=== PATIENT | male | born 1995 | race African-American/Black ===

== ENCOUNTER 2017-08-07 20:44 | Outpatient (CLI) | payer OTHER | END 2017-08-07 20:45 | disposition critical access hospital (66) | LOC: EMS 20:44 | PROVIDERS: ATTEND Surgery | DX: R40.20 Unspecified coma (principal) | CPT/HCPCS: A0425; A0429 ==

== ENCOUNTER 2019-01-08 19:51 | Emergency (ER) | payer OTHER ==
--- NOTE | 2019-01-08 20:24 | XRAY Report ---
Reason: smashed Procedure Date: 01/08/2019 Accession Number: [id number] / [id number] Procedure: XR - Finger(s) RT CPT Code: FULL RESULT: EXAM: RIGHT FIFTH DIGIT RADIOGRAPHY EXAM DATE: 01/08/2019 08:11 PM. CLINICAL HISTORY: Smashed. Right fifth digit laceration after getting finger caught in door tonight. Laceration at fifth metacarpophalangeal joint. COMPARISON: None. TECHNIQUE: 3 views. FINDINGS: Bones: Normal. No fracture or bone lesion. Joints: Normal. No subluxations. Soft Tissues: Subcutaneous soft tissue lucency seen at the ulnar dorsal aspect at the fifth proximal phalanx, could represent a laceration. No radiopaque foreign body. No evidence for acute fracture. IMPRESSION: Subcutaneous soft tissue lucency seen at the ulnar dorsal aspect at the fifth proximal phalanx, could represent a laceration. No radiopaque foreign body. No evidence for acute fracture. RADIA
--- NOTE | 2019-01-08 20:42 | ED Physician Documentation ---
PD HPI UPPER EXT INJURY - Stated complaint Stated Complaint: RT PINKY INJ - Chief complaint Chief Complaint: Laceration - History obtained from History obtained from: Patient - History of Present Illness Location: Right, Finger Type of injury: Crush (finger caught in door, with lac of skin and pain on ROM of the proximal part of the finger. No injury to the nailbed.) Timing - onset: Today (this morning.) Timing - details: Abrupt onset, Still present (he tried to just bandage it, but the lac opens still with flexion of the finger.) Improved by: Rest Worsened by: Moving Associated symptoms: Swelling (with small lac dorsal aspect of the MCP area. Lac withut FB and does not expose deep structures.). No: Weakness, Numbness Recently seen: Not recently seen Review of Systems Neurologic: denies: Focal weakness, Numbness, Near syncope PD PAST MEDICAL HISTORY - Past Medical History Cardiovascular: None Endocrine/Autoimmune: None - Past Surgical History Past Surgical History: No - Present Medications Home Medications: Ambulatory Orders Medication Instructions Recorded Confirmed No Known Home Medications 08/07/17 08/07/17 - Allergies Allergies/Adverse Reactions: Allergies Allergy/AdvReac Type Severity Reaction Status Date / Time Penicillins Allergy Hives Verified 01/08/19 19:57 - Social History Does the pt smoke?: No Smoking Status: Never smoker PD ED PE NORMAL - Vitals Vital signs reviewed: Yes - General General: Alert and oriented X 3, No acute distress, Well developed/nourished - Derm Derm: Normal color, Warm and dry - Extremities Extremities: Other (The right little finger shows swelling and tenderness locally over the proximal phalanx. Critically tender on the dorsal aspect. There is a flap laceration at the distal MCP area. There is no foreign body noted. There is no deformity on range of motion. There is good color and capillary refill in the tip.) - Neuro Neuro: No motor deficit, No sensory deficit Results - Vitals Vitals: Vital Signs - 24 hr 01/08/19 01/08/19 19:55 21:10 Temperature 36.9 C Heart Rate 66 68 Respiratory 17 18 Rate Blood Pressure 129/78 O2 Saturation 99 99 Oxygen O2 Source Room air - Rads (name of study) right finger Radiology: Prelim report reviewed (no fractures), EMP read contemporaneously, See rad report Procedures - Laceration (location) right little finger Length in cm: 1.3 Wound type: Flap, Into subcut fat, Clean Neurovascular status: Sensory intact, Motor intact, Vascular intact Tendon involvement: Tendon intact Anesthesia: Lidocaine 1% with epi Wound Preparation: Irrigated copiously NS Skin layer closure: Interrupted, Size #-0 - enter number (4), Sutures - enter # (5) Other: Patient tolerated well, No complications, Neurovascular intact, Dressing applied, Tetanus UTD Complexity: Simple Departure - Departure Disposition: 01 Home, Self Care Clinical Impression: Laceration of right little finger Qualifiers: Encounter type: initial encounter Damage to nail status: without damage Foreign body presence: without foreign body Qualified Code(s): S61.216A - Laceration without foreign body of right little finger without damage to nail, initial encounter Crush injury to finger Qualifiers: Encounter type: initial encounter Qualified Code(s): S67.10XA - Crushing injury of unspecified finger(s), initial encounter Condition: Stable Record reviewed to determine appropriate education?: Yes Instructions: ED Laceration Hand Follow-Up: BRENDA Menjivar [Provider Group] Comments: It is okay to wash and shower. Clean off the wound twice a day with soap and water, or peroxide and water. Apply some antibiotic ointment to it to keep it moist. Also to watch for signs of infection such as purulence, redness or increasing pain. Return to your primary care or the ER at the specified time for suture removal. Suture removal 10 days. Tylenol or ibuprofen as needed for pains. Regular use but not firm or hard use of the fingers to moderate stress on the sutures. Discharge Date/Time: 01/08/19 21:10
[2019-01-08 21:11] VITALS: BP 129/78
== END 2019-01-08 21:10 | disposition home or self-care (01) ==
LOC: ED 19:51
DX: S61.216A Laceration without foreign body of right little finger without damage to nail, initial encounter (principal); S67.10XA Crushing injury of unspecified finger(s), initial encounter; W23.0XXA Caught, crushed, jammed, or pinched between moving objects, initial encounter
CPT/HCPCS: 12001; 73140; 99282

== ENCOUNTER 2019-01-18 19:18 | Emergency (ER) | payer OTHER ==
[2019-01-18 19:38] VITALS: BP 132/70
--- NOTE | 2019-01-18 19:50 | ED Physician Documentation ---
PD HPI WOUND RECHECK - Stated complaint Stated Complaint: RT HAND STITCH REMOVED - Chief complaint Chief Complaint: Wound - Histroy obtained from History obtained from: Patient - History of Present Illness Location: Right Upper Extremity (Sutures 10 days ago, No complications. Here for suture removal. No other specific complaints.) Review of Systems Constitutional: denies: Fever, Chills Nose: reports: Reviewed and negative Throat: reports: Reviewed and negative PD PAST MEDICAL HISTORY - Past Medical History Cardiovascular: None Respiratory: None Neuro: None Endocrine/Autoimmune: None GI: None : None HEENT: None Psych: None Musculoskeletal: None Derm: None - Past Surgical History Past Surgical History: No General: Appendectomy HEENT: Tonsil/Adenoidectomy - Present Medications Home Medications: Ambulatory Orders Medication Instructions Recorded Confirmed No Known Home Medications 08/07/17 08/07/17 - Allergies Allergies/Adverse Reactions: Allergies Allergy/AdvReac Type Severity Reaction Status Date / Time Penicillins Allergy Hives Verified 01/18/19 19:38 - Social History Does the pt smoke?: No Smoking Status: Never smoker Does the pt drink ETOH?: Yes Does the pt have substance abuse?: No - Immunizations Immunizations are current?: Yes - POLST Patient has POLST: No PD ED PE NORMAL - Vitals Vital signs reviewed: Yes - General General: Alert and oriented X 3, No acute distress - Extremities Extremities: Other (Over the dorsum of the right fifth finger at the level of the proximal phalanx there is a sutured laceration without evidence of infection.) - Neuro Neuro: Alert and oriented X 3, Normal speech Results - Vitals Vitals: Vital Signs - 24 hr 01/18/19 19:30 Temperature 36.0 C L Heart Rate 73 Respiratory 16 Rate Blood Pressure 132/70 H O2 Saturation 99 Oxygen O2 Source Room air Departure - Departure Disposition: 01 Home, Self Care Clinical Impression: Visit for suture removal Condition: Good Record reviewed to determine appropriate education?: Yes Instructions: ED Wound Check Sutr Remove No Infec Comments: Your blood pressure was elevated today on check into the emergency department. This does not mean that you have hypertension, it is a common phenomenon to come to the emergency department and have elevated blood pressure. I recommend that you see your primary care physician within the week to have it rechecked when you are feeling better.
== END 2019-01-18 19:57 | disposition home or self-care (01) ==
LOC: ED 19:18
DX: S61.216D Laceration without foreign body of right little finger without damage to nail, subsequent encounter (principal); R03.0 Elevated blood-pressure reading, without diagnosis of hypertension
CPT/HCPCS: 99282

== ENCOUNTER 2019-02-12 06:01 | Day surgery (SDC) | payer OTHER ==
[2019-02-12] MEDS ORDERED: LACTATED RINGERS 1,000 ML IV ONE ×2 (06:20→09:13)
[2019-02-12] MEDS ORDERED: ceFAZolin 2 GM/50 ML 2 GM/50 ML BAG IV ONE (06:45)
--- NOTE | 2019-02-12 06:59 | ANESTHESIA ---
Pre-Anesthesia VS, & Labs - Diagnosis L ankle talus fracture, possible syndesmosis interruption - Procedure L ankle arthrotomy, possible ligament repair Vital Signs: Temp Pulse Resp BP Pulse Ox 36.1 C L 73 17 129/86 H 99 02/12/19 06:28 02/12/19 06:28 02/12/19 06:28 02/12/19 06:28 02/12/19 06:28 Height 6 ft 1 in Weight (kg) 77.11 kg Body Mass Index 22.4 - NPO >8 hours Home Medications and Allergies No Known Home Medications 08/07/17 Allergies/Adverse Reactions: Allergies Allergy/AdvReac Type Severity Reaction Status Date / Time Penicillins Allergy Hives Verified 02/10/19 10:21 Anes History & Medical History - Anesthetic History Anesthesia Complications: reports: No previous complications Family history of Anesthesia Complications: Denies Family history of Malignant Hyperthermia: Denies - Medical History Cardiovascular: reports: None Pulmonary: reports: None Gastrointestinal: reports: None Urinary: reports: None Neuro: reports: None Musculoskeletal: reports: Other Endocrine/Autoimmune: reports: None Blood Disorders: reports: None Skin: reports: None Smoking Status: Never smoker Psychosocial: reports: No issues indicated - Surgical History General: Appendectomy Eyes Ears Nose Throat (EENT): Tonsil/Adenoidectomy Exam General: Alert, Oriented x3, Cooperative Dental: WNL Mouth Openin Fingerbreadth Neck Mobility: Normal Mallampati classification: II Thyromental Distance: 4-6 cm Respiratory: Lungs clear, Normal breath sounds Cardiovascular: Regular rate Neurological: Normal speech Mental/Cognitive Status: Alert/Oriented X3, Normal for patient Cognitive Status: Within normal limits Plan Anesthesia Type: General Consent for Procedure(s) Verified and Reviewed: Yes Code Status: Attempt Resuscitation ASA classification: 1-Healthy patient Is this case an emergency?: No
[2019-02-12] MEDS ORDERED: BUPIVACAINE 0.25% PF 30 ML VIAL ONE (07:02)
[2019-02-12] MEDS ORDERED: BUPIVACAINE 0.25% PF 30 ML VIAL SUBQ ONE ×2 (08:28)
[2019-02-12] MEDS ORDERED: GLYCOPYRROLATE 1 MG/5 ML VIAL IVP ONE (09:00)
[2019-02-12] MEDS ORDERED: LIDOCAINE-MPF 2% 5 ML VIAL IM ONE (09:00)
[2019-02-12] MEDS ORDERED: fentaNYL 250 MCG/5 ML VIAL IVP ONE (09:00)
[2019-02-12] MEDS ORDERED: ONDANSETRON 4 MG/2 ML VIAL IVP ONE (09:00)
[2019-02-12] MEDS ORDERED: NALOXONE 0.4 MG/ML VIAL IVP ONE (09:00)
[2019-02-12] MEDS ORDERED: KETOROLAC 30 MG/ML VIAL IVP ONE (09:00)
[2019-02-12] MEDS ORDERED: MIDAZOLAM 2 MG/2 ML VIAL IVP ONE (09:00)
[2019-02-12] MEDS ORDERED: NEOSTIGMINE 1 MG/1 ML 10 ML MDV IVP ONE (09:00)
[2019-02-12] MEDS ORDERED: PROPOFOL 200 MG/20 ML VIAL IVP ONE (09:00)
[2019-02-12] MEDS ORDERED: HYDROmorphone 1 MG/ML SYRINGE IVP ONE (09:00)
[2019-02-12] MEDS ORDERED: ONDANSETRON 4 MG/2 ML VIAL IVP PRN (09:15)
[2019-02-12] MEDS ORDERED: oxyCODONE 5 MG TABLET PO PRN (09:15)
[2019-02-12] MEDS ORDERED: ACETAMINOPHEN 1,000 MG/100 ML 100 ML IV ONE (09:30)
--- NOTE | 2019-02-12 09:32 | OPERATIVE REPORT ---
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 The bony portion was approximately 2 mm and the cartilage was 1 mm. The measurements are 15 mm x 3 mm thick by 7 mm tall for 1 and then 10 mm x 3 mm thick by 4 mm for the other. When the 2 fragments were placed together they represent a small portion of the shoulder of the lateral talus and then the bone and cartilage that would typically articulate with the fibula. Postoperative Protocol: Nonweightbearing for 6 weeks. Splint for 2 weeks. Boot from weeks 2-6. Gradually increase weightbearing from 6 to 12 weeks. Impact activities can be started at 12 weeks. Indication For Surgery: 23-year-old male who injured his left ankle approximately 2 weeks ago. He reports a spraining type mechanism. He was able to walk on it afterwards but it swelled up later that evening. Imaging and evaluation revealed that he had sheared off a portion of the talus on the lateral side that was adjacent to the fibula. Those 2 fragments had become loose. He additionally had potentially a syndesmotic in the deltoid injury which were evaluated today. We discussed treatment options to include watchful waiting, fixation, excision. Given the fact it was a very small section of the weightbearing surface and it more involved the talofibular joint I felt that fixation presented extreme challenges, was potential we to be unsuccessful, and would require a fibular osteotomy, with potentially the risk of nonunion. Because of these we opted to perform excision of the fragments. The risks, benefits, and alternatives were discussed. Risks include pain, bleeding, infection, damage to nearby structures, numbness, lack of symptom relief, implant complications, nonunion, need for further surgery, DVT, PE, stroke, and . Written consent was obtained. Procedure in Detail: The patient was met in the pre-operative hold area on the day of the procedure. The operative extremity was signed and questions were answered. The patient was brought to the operating room and a general anesthetic was administered. Prone position was used and all bony prominences were padded. Fluoroscopy was used to image the contralateral normal side and to stress the syndesmosis and the deltoid ligament on the normal side. I then compared this to stress fluoroscopy of the syndesmosis and the deltoid ligament on the injured side. I found her to be slightly more opening of the deltoid ligament but the syndesmosis was stable. I made the decision to not repair the deltoid. I plan to to examine the syndesmosis during the surgery to determine if syndesmotic fixation would be necessary. Standard prepping and draping was then performed. A time out confirmed patient identification, laterality, procedure, allergies, antibiotics, and images. An Esmarch was used to exsanguinate the limb and the tourniquet was elevated to 250 mmHg. The posterior lateral approach to the ankle joint was used. A 4 cm incision was made just off the posterior border of the fibula. Hemostasis was obtained with electrocautery. I sought for the sural nerve distally but could not find it within the wound. The peroneal tendon sheath was identified and I worked around it sharply with a knife down through the deep fascia. The posterior syndesmosis was seen and it appeared to be uninjured. I then sharply created a 1 cm arthrotomy releasing a few millimeters of the inferior portion of the posterior inferior tibiofibular ligament and the capsule inferiorly. The bone fragments were then apparent in the wound and I remove the large one. I then searched for the second and found it. I then examined the portions of the joint that were visible and no additional fragments were seen. I then irrigated the joint copiously and no additional fragments were delivered. I then performed a stress examination of the syndesmosis and found the fibula to be stable within the incisura. The wound was then irrigated copiously and the capsule was closed with 0 Vicryl. The deep fascia was closed with 0 Vicryl. The dermis was closed with 2-0 Vicryl, and the skin was closed with nylon. A sterile dressing was applied and a splint was placed. He was awakened and transferred to the recovery room without issue.
[2019-02-12] MEDS: HYDROmorphone 1 MG/ML CARPUJECT ONE ×2 (09:39→09:57)
[2019-02-12] MEDS ORDERED: oxyCODONE 5 MG TABLET ONE (10:20)
[2019-02-12 11:09] VITALS: BP 134/92
--- NOTE | 2019-02-12 12:51 | XRAY Report ---
Reason: Left Ankle arthrotomy/ligament repair Procedure Date: 02/12/2019 Accession Number: [id number] / [id number] Procedure: FL - OR C-Arm Procedure CPT Code: FULL RESULT: EXAM: FLUOROSCOPIC GUIDANCE EXAM DATE: 02/12/2019 08:44 AM. CLINICAL HISTORY: Left ankle arthrotomy/ligament repair. COMPARISON: LEFT ANKLE ARTHROTOMY 02/12/2019 7:15 AM. FINDINGS: Fluoroscopy was provided to the surgeon in the operating room. IMPRESSION: Fluoroscopic guidance provided for left ankle arthrotomy. Space. Total fluoroscopy time: 20 seconds. Number of images: 8. RADIA
--- NOTE | 2019-02-12 14:23 | XRAY Report ---
Reason: left ankle arthrotomy/ligament repair Procedure Date: 02/12/2019 Accession Number: [id number] / [id number] Procedure: XR - Ankle 2 View LT CPT Code: FULL RESULT: EXAM: LEFT ANKLE RADIOGRAPHY EXAM DATE: 02/12/2019 08:44 AM. CLINICAL HISTORY: Left ankle arthrotomy/ligament repair. COMPARISON: None. TECHNIQUE: 4 views of the left ankle. 4 views of the right ankle for comparison FINDINGS: Bones: Normal bone mineralization. No fracture. Joints: Ankle mortise is intact bilaterally. Soft Tissues: No radiopaque foreign object. IMPRESSION: Fluoroscopic images of the bilateral ankles during left ankle arthrotomy and ligament repair. RADIA
== END 2019-02-12 06:02 | disposition home or self-care (01) ==
LOC: SDS 06:01
PROVIDERS: ATTEND Orthopaedic Surgery
PROC: 0SCG0ZZ Extirpation of Matter from Left Ankle Joint, Open Approach (ICD-10-PCS; principal; 2019-02-12 07:30)
DX: S92.152A Displaced avulsion fracture (chip fracture) of left talus, initial encounter for closed fracture (principal); F17.290 Nicotine dependence, other tobacco product, uncomplicated
CPT/HCPCS: 27620; 73600; A9270; J0131; J0690; J1170; J3010; J7120